=== PATIENT | male | born 1995 | race Caucasian/White ===

== ENCOUNTER 2017-06-14 22:57 | Emergency (ER) | payer SELFPAY ==
[~2017-06-14] VITALS: Ht 193 cm; Wt 154.0 kg
[2017-06-14 23:00] VITALS: BP 90/63; PULSE 105; RESP 16; TEMP 98.2; O2SAT 96
[2017-06-14] MEDS ORDERED: SODIUM CHLOR 0.9% 1000 ML INJ 1,000 ML IV ONE ×2 (23:13→23:15)
[2017-06-14] MEDS ORDERED: SODIUM CHLORIDE 0.9% FLUSH 10 ML FLUSH IVF PRN (23:15)
[2017-06-14] MEDS ORDERED: MORPHINE SULFATE 4 MG/ML INJ IV PUSH ONE (23:15)
[2017-06-14] MEDS ORDERED: ONDANSETRON HCL 4 MG/2 ML VIAL IV PUSH ONE (23:15)
--- NOTE | 2017-06-14 23:18 | PD ---
HPI Chief Complaint: nausea, vomiting, diarrhea Time Seen by Provider: 23:07 Travel History International Travel<30 days: No Contact w/Intl Traveler<30days: No Traveled to known affect area: No History of Present Illness HPI The patient is a 22-year-old male who presents emergency department for nausea, vomiting, and diarrhea. The patient states his symptoms started today at 5 PM with nausea. He subsequently had several episodes of vomiting and then developed diarrhea. The patient describes the diarrhea as loose, watery, without any visible blood. He notes multiple episodes of nausea and vomiting and thinks he may have passed out or had a seizure at home after an episode of vomiting and diarrhea. The patient does complain of mild diaphoresis. He denies any chronic medical problems. He states he ate chicken and green beans at home, but denies any sick contacts at home. He denies any fever, but does know some diaphoresis with chills. He denies any recent international travel. Symptoms are moderate without any alleviating or exacerbating factors. [facility] Past Medical History Medical History: Denies Significant Hx Past Surgical History Surgical History: No Previous Surgery Social History Tobacco Use: No Allergies-Medications (Allergen,Severity, Reaction): Coded Allergies: No Known Allergies (Unverified , 06/14/17) Review of Systems Except as stated in HPI: all other systems reviewed are Neg General / Constitutional: Positive: Chills, No: Fever Cardiovascular: Positive: Diaphoresis, Syncope (possible syncopal episode after vomiting and diarrhea), No: Chest Pain or Discomfort Respiratory: No: Shortness of Breath Gastrointestinal: Positive: Nausea, Vomiting, Diarrhea, No: Abdominal Pain Musculoskeletal: No: Myalgias, Arthralgias Neurologic: Positive: Syncope (possible syncopal episode at home after vomiting and diarrhea), No: Dizziness Physical Exam Narrative GENERAL: Awake, alert, pleasant 22-year-old male who appears his stated age is in no acute respiratory distress. SKIN: Focused skin assessment warm, slightly diaphoretic. HEAD: Atraumatic. Normocephalic. EYES: Pupils equal and round. No scleral icterus. No injection or drainage. ENT: No nasal bleeding or discharge. Mucous membranes pink and moist. NECK: Trachea midline. No JVD. CARDIOVASCULAR: Regular rate and rhythm. No murmur appreciated. RESPIRATORY: No accessory muscle use. Clear to auscultation. Breath sounds equal bilaterally. GASTROINTESTINAL: Abdomen soft, obese, visible stria. No guarding or rigidity. MUSCULOSKELETAL: No obvious deformities. No clubbing. No cyanosis. No edema. NEUROLOGICAL: Awake and alert. No obvious cranial nerve deficits. Motor grossly within normal limits. Normal speech. Nonfocal. Oriented 4. Follows commands without difficulty. PSYCHIATRIC: Appropriate mood and affect; insight and judgment normal. Data Data Last Documented VS Vital Signs Date Time Temp Pulse Resp B/P (MAP) Pulse Ox O2 Delivery O2 Flow Rate FiO2 06/15/17 00:16 100 16 98/55 (69) 96 Room Air 06/14/17 23:00 98.2 Orders Orders Complete Blood Count With Diff (06/14/17 23:13) Comprehensive Metabolic Panel (06/14/17 23:13) Lipase (06/14/17 23:13) Iv Access Insert/Monitor (06/14/17 23:13) Ecg Monitoring (06/14/17 23:13) Oximetry (06/14/17 23:13) Morphine Inj (Morphine Inj) (06/14/17 23:15) Ondansetron Inj (Zofran Inj) (06/14/17 23:15) Sodium Chlor 0.9% 1000 Ml Inj (Ns 1000 M (06/14/17 23:13) Sodium Chloride 0.9% Flush (Ns Flush) (06/14/17 23:15) Sodium Chlor 0.9% 1000 Ml Inj (Ns 1000 M (06/14/17 23:15) Sodium Chlor 0.9% 1000 Ml Inj (Ns 1000 M (06/15/17 00:15) Labs Laboratory Tests Test 06/14/17 23:20 White Blood Count 19.2 TH/MM3 Red Blood Count 5.86 MIL/MM3 Hemoglobin 15.0 GM/DL Hematocrit 45.2 % Mean Corpuscular Volume 77.3 FL Mean Corpuscular Hemoglobin 25.6 PG Mean Corpuscular Hemoglobin Concent 33.1 % Red Cell Distribution Width 13.2 % Platelet Count 300 TH/MM3 Mean Platelet Volume 7.4 FL Neutrophils (%) (Auto) 80.6 % Lymphocytes (%) (Auto) 12.8 % Monocytes (%) (Auto) 4.5 % Eosinophils (%) (Auto) 0.3 % Basophils (%) (Auto) 1.8 % Neutrophils # (Auto) 15.4 TH/MM3 Lymphocytes # (Auto) 2.5 TH/MM3 Monocytes # (Auto) 0.9 TH/MM3 Eosinophils # (Auto) 0.1 TH/MM3 Basophils # (Auto) 0.3 TH/MM3 CBC Comment DIFF FINAL Differential Comment Blood Urea Nitrogen 16 MG/DL Creatinine 1.00 MG/DL Random Glucose 156 MG/DL Total Protein 8.6 GM/DL Albumin 4.2 GM/DL Calcium Level 8.9 MG/DL Alkaline Phosphatase 106 U/L Aspartate Amino Transf (AST/SGOT) 44 U/L Alanine Aminotransferase (ALT/SGPT) 54 U/L Total Bilirubin 0.7 MG/DL Sodium Level 137 MEQ/L Potassium Level 3.5 MEQ/L Chloride Level 103 MEQ/L Carbon Dioxide Level 24.2 MEQ/L Anion Gap 10 MEQ/L Estimat Glomerular Filtration Rate 93 ML/MIN Lipase 80 U/L MDM Medical Decision Making Medical Screen Exam Complete: Yes Emergency Medical Condition: Yes Medical Record Reviewed: Yes Interpretation(s) Laboratory Tests Test 06/14/17 23:20 White Blood Count 19.2 TH/MM3 Red Blood Count 5.86 MIL/MM3 Hemoglobin 15.0 GM/DL Hematocrit 45.2 % Mean Corpuscular Volume 77.3 FL Mean Corpuscular Hemoglobin 25.6 PG Mean Corpuscular Hemoglobin Concent 33.1 % Red Cell Distribution Width 13.2 % Platelet Count 300 TH/MM3 Mean Platelet Volume 7.4 FL Neutrophils (%) (Auto) 80.6 % Lymphocytes (%) (Auto) 12.8 % Monocytes (%) (Auto) 4.5 % Eosinophils (%) (Auto) 0.3 % Basophils (%) (Auto) 1.8 % Neutrophils # (Auto) 15.4 TH/MM3 Lymphocytes # (Auto) 2.5 TH/MM3 Monocytes # (Auto) 0.9 TH/MM3 Eosinophils # (Auto) 0.1 TH/MM3 Basophils # (Auto) 0.3 TH/MM3 CBC Comment DIFF FINAL Differential Comment Blood Urea Nitrogen 16 MG/DL Creatinine 1.00 MG/DL Random Glucose 156 MG/DL Total Protein 8.6 GM/DL Albumin 4.2 GM/DL Calcium Level 8.9 MG/DL Alkaline Phosphatase 106 U/L Aspartate Amino Transf (AST/SGOT) 44 U/L Alanine Aminotransferase (ALT/SGPT) 54 U/L Total Bilirubin 0.7 MG/DL Sodium Level 137 MEQ/L Potassium Level 3.5 MEQ/L Chloride Level 103 MEQ/L Carbon Dioxide Level 24.2 MEQ/L Anion Gap 10 MEQ/L Estimat Glomerular Filtration Rate 93 ML/MIN Lipase 80 U/L Differential Diagnosis differential diagnosis includes gastroenteritis, food poisoning, dehydration, vasovagal syncope, hyponatremia, hypokalemia, enteritis, colitis, viral syndrome. Narrative Course IV was established, labs are drawn and sent, and the patient was placed on cardiac telemetry monitoring and continuous pulse oximetry monitoring. The patient was administered Zofran, morphine, and 2 L of IV fluids. The patient's white count was elevated at 19.2, LFTs and lipase are unremarkable. Heart rate was slightly elevated at 100, blood pressure systolic was in the 90s. The patient was reevaluated at 12 AM after 1.5 L of fluid, his symptoms had improved. However, he does appear slightly hypotensive, may be vasovagal reaction secondary to gastroenteritis. Abdominal exam is benign, there is no indication for CT the abdomen and pelvis. Patient was administered a third liter of IV fluids and continued to be monitored in the emergency department. The patient was reevaluated at 12:36 AM, his symptoms had significantly improved. The patient was given a by mouth challenge with Gatorade. Diagnosis Primary Impression: Gastroenteritis Patient Instructions: General Instructions Additional Instructions: Zofran as directed. Clear liquid diet and advance as tolerated. Plenty fluids to stay hydrated. Work excuse for 2 days. Return if symptoms worsen or progress. Follow-up with a primary physician. Med/Other Pt SpecificInfo: Prescription(s) given Scripts Ondansetron Odt (Zofran Odt) 4 Mg Tab 4 MG SL Q6HR Y for Nausea/Vomiting, #10 TAB 0 Refills Prov: William Davis MD 06/15/17 Disposition: 01 DISCHARGE HOME Condition: Stable William Davis MD Jun 14, 2017 23:18
[2017-06-14 23:29] LABS: AUTOMATED NEUTROPHIL # 15.4 TH/MM3 (1.8-7.7); BASOPHIL # 0.3 TH/MM3 (0-0.2); BASOPHIL % 1.8 % (0.0-2.0); EOSINOPHIL # 0.1 TH/MM3 (0-0.4); EOSINOPHIL % 0.3 % (0.0-4.0); HEMATOCRIT 45.2 % (39.0-51.0); LYMPH % 12.8 % (9.0-44.0); LYMPHOCYTE # 2.5 TH/MM3 (1.0-4.8); MEAN CELL VOLUME 77.3 FL (80.0-100.0); MEAN CORPUSCULAR HEMOGLOBIN 25.6 PG (27.0-34.0); MEAN CORPUSCULAR HGB CONC 33.1 % (32.0-36.0); MEAN PLATELET VOLUME 7.4 FL (7.0-11.0); MONO % 4.5 % (0.0-8.0); MONOCYTE # 0.9 TH/MM3 (0-0.9); NEUT % 80.6 % (16.0-70.0); PLATELET COUNT 300 TH/MM3 (150-450); RED BLOOD COUNT 5.86 MIL/MM3 (4.50-5.90); RED CELL DISTRIBUTION WIDTH 13.2 % (11.6-17.2); WHITE BLOOD COUNT 19.2 TH/MM3 (4.0-11.0)
[2017-06-14 23:38] LABS: CHLORIDE 103 MEQ/L (98-107); SODIUM (NA) 137 MEQ/L (136-145)
[2017-06-14 23:41] LABS: CALCIUM 8.9 MG/DL (8.5-10.1)
[2017-06-14 23:42] LABS: ALBUMIN 4.2 GM/DL (3.4-5.0); BICARBONATE 24.2 MEQ/L (21.0-32.0); BLOOD UREA NITROGEN 16 MG/DL (7-18); GLUCOSE,RANDOM 156 MG/DL (74-106); LIPASE 80 U/L (73-393)
[2017-06-14 23:45] LABS: ALT (GPT) 54 U/L (12-78); AST (GOT) 44 U/L (15-37); GLOMERULAR FILTRATION RATE 93 ML/MIN (>89)
[2017-06-14 23:46] VITALS: BP 97/58; PULSE 103; RESP 16; O2SAT 96
[2017-06-14 23:47] LABS: TOTAL BILIRUBIN ADULT 0.7 MG/DL (0.2-1.0); TOTAL PROTEIN 8.6 GM/DL (6.4-8.2)
[2017-06-14 23:48] LABS: ALKALINE PHOSPHATASE 106 U/L (45-117)
[2017-06-15] MEDS ORDERED: SODIUM CHLOR 0.9% 1000 ML INJ 1,000 ML IV ONE (00:15)
[2017-06-15 00:16] VITALS: BP 98/55; PULSE 100; RESP 16; O2SAT 96
[2017-06-15 00:30] VITALS: BP 103/58; PULSE 99; RESP 16
[2017-06-15] MEDS ORDERED: ZOFR4TAB3 SL (00:37)
[2017-06-15 00:44] VITALS: BP 114/63; PULSE 98; RESP 16; O2SAT 98
[2017-06-15 01:38] VITALS: BP 128/77
== END 2017-06-15 01:41 | disposition home or self-care (01) ==
LOC: PHED 22:57
DX: K52.9 Noninfective gastroenteritis and colitis, unspecified (principal)
CPT/HCPCS: 80053; 83690; 85025; 96361; 96374; 96375; 99284; J2270; J2405; J7030